=== PATIENT | male | born 1950 | race Caucasian/White ===

== ENCOUNTER 2016-05-10 10:11 | Day surgery (SDC) | payer MEDICARE, MEDICAID ==
[~2016-05-10 10:11] MED LIST: RINGERS SOLUTION,LACTATED 1,000 ML IV PRN; ceFAZolin SODIUM 2 GM in DEXTROSE 5 % IN WATER 50 ML IV PRN
[2016-05-10] MEDS ORDERED: RINGERS SOLUTION,LACTATED 1,000 ML IV ONE ×3 (12:03→14:25)
[2016-05-10] MEDS ORDERED: BUPIVACAINE HCL/EPINEPHRINE 50 ML VIAL IJ ONE (14:08)
[2016-05-10] MEDS ORDERED: oxyCODONE HCL/ACETAMINOPHEN 1 TAB TABLET PO PRN (15:32)
[2016-05-10] MEDS ORDERED: MORPHINE SULFATE 2 MG/ML DISP.SYRIN IV PRN (15:33)
[2016-05-10 17:34] VITALS: BP 139/80
--- NOTE | 2016-05-10 20:03 | OR ---
Operative Report - Dictated Report Narrative: Date of operation: 05/10/2016 Preoperative diagnosis: Right inguinal hernia. 0.5 cm lesion on the nose Postoperative diagnosis: Large indirect right inguinal hernia. Sebaceous cyst of the nose (pathology pending) Operation: Repair of right inguinal hernia (Bard mesh plug and patch). Excision of lesion of the nose Surgeon: RICKY Espinosa MD Anesthesia: Gen. LMA Mihir Yeh CRNA Indications for procedure: The patient is a 66-year-old male referred by Dr. Swann. The patient developed a right inguinal hernia after lifting logs about 2 years ago. The hernia has gradually enlarged and he must wear a truss to keep it reduced. He is also developed a new lesion on the right side of his nose. Findings: Large indirect right inguinal hernia with weak floor. Apparent 0.5 cm sebaceous cyst of the right side of the nose (pathology pending) Narrative of procedure: The patient was identified preoperatively, the surgical sites were marked, and prior to the administration of anesthetic a multidisciplinary timeout was observed. The patient was placed supine, SCDs were applied, and intravenous Ancef administered. Gen. LMA Anesthetic was administered. The patient's abdomen and genitalia were prepped with Betadine solution and the right groin isolated with 4 sterile towels. The remainder the patient was covered with a sterile disposable drape. A transverse skin incision was made over the midportion of the right inguinal canal. Dissection was carried through subcutaneous tissue with electrocautery until the fascia of the external oblique aponeurosis was encountered. This was incised in the direction of its fibers down to and including the external inguinal ring. The ilioinguinal nerve was identified and protected throughout the procedure. Cord structures were encircled at the pubic tubercle, and a Bronwyn drain placed for traction. Inspection of the inguinal floor revealed weakness but no keaton direct hernia. Inspection of the cord revealed a large indirect hernia sac extending into the scrotum. There was also a large lipoma of the cord. The sac was opened and a fore finger inserted. The sac was bluntly dissected free from the cord structures back to the internal inguinal ring. A forefinger was inserted into the abdomen and palpation of the undersurface of the inguinal floor revealed weakness without a keaton fascial defect. The neck of the sac was transfixed under direct vision and ligated with a suture ligature of 0 Ethibond. Excess sac was amputated and the neck of the sac was redirected superiorly using the same suture of 0 Ethibond. The large lipoma of the cord was then dissected free from cord structures back to the internal inguinal ring and transected with electrocautery. A Bard mesh plug was placed in the inguinal floor and secured circumferentially to the pubic tubercle, conjoined tendon, and along the shelving border of the inguinal ligament with interrupted sutures of 0 Ethibond. A suture was placed between the conjoined tendon and shelving border of the inguinal ligament to incorporate the lateral portion of the plug just medial to the cord to reinforce the internal inguinal ring. A tailored mesh patch was placed in the inguinal floor and secured circumferentially to the pubic tubercle, along the conjoined tendon, and along the shelving border of the inguinal ligament with interrupted sutures of 0 Ethibond. The wings of the patch were wrapped around the cord structures and secured laterally with additional interrupted sutures of 0 Ethibond. The new internal inguinal ring was found to be of sufficient caliber to admit cord structures without undue constriction. The wound was inspected for hemostasis which appeared complete. The cord structures and ilioinguinal nerve were returned to an anatomic position. The external oblique aponeurosis was approximated with a running suture of 2-0 Vicryl. Subcutaneous tissues were approximated with interrupted sutures of 0 chromic. The skin was secured with a running subcuticular suture of 4-0 Vicryl. The operative site was washed and dried. A dressing of Dermabond, folded 4 x 4, and Medipore tape was applied. The scrotum was checked to ensure that the testicles were in an anatomic position. Next the right side of the patient's nose was prepped with Betadine solution and the area around the lesion was isolated with a sterile eye drape. The area was infiltrated with 0.5% Marcaine with epinephrine. The skin lesion was then excised elliptically, submitted to pathology, and the defect closed with 2 interrupted sutures of 4-0 nylon. The area was washed and dried. A dressing of spot Band-Aid was applied. The operative procedure was terminated at this point. An x-ray was obtained to ensure that all gauze sponges were accounted for. There was no retained sponge demonstrated, and the missing sponge was subsequently located and all counts were correct. The patient tolerated the anesthetic and procedure well without complication. There was no measurable blood loss. Only the lesion on the nose was submitted to pathology due to the benign gross appearance of the hernia sac and lipoma. 0.5% Marcaine with epinephrine was used for local anesthetic infiltration. The patient was transferred to the recovery room awake, extubated , and in stable condition. The patient remained stable throughout a period of postoperative observation. He was able to tolerate PO intake. His pain was controlled with PO Percocet. He was able to ambulate without assistance. The dressings remained dry. He was discharged home with instructions not to lift and not to drive. He is to keep the current dressings dry and intact for 48 hours, but then may shower and change the dressing daily or as needed. The patient was previously given a prescription for Percocet 5/325 mg #30 one or 2 PO Q4-6hrs prn pain. The patient has phone numbers to call prn signs of wound infection or hematoma, and an office appointment was made for 1 week. Reviewed and electronically signed
== END 2016-05-10 10:12 | disposition home or self-care (01) ==
LOC: AMB 10:11
PROVIDERS: ATTEND Surgery
PROC: 0YU50JZ Supplement Right Inguinal Region with Synthetic Substitute, Open Approach (ICD-10-PCS; principal; 2016-05-10 12:00)
PROC: 0HB1XZZ Excision of Face Skin, External Approach (ICD-10-PCS; 2016-05-10 12:00)
DX: K40.90 Unilateral inguinal hernia, without obstruction or gangrene, not specified as recurrent (principal); C44.311 Basal cell carcinoma of skin of nose; I10 Essential (primary) hypertension; E78.5 Hyperlipidemia, unspecified; Z87.891 Personal history of nicotine dependence; Z68.30 Body mass index [BMI] 30.0-30.9, adult